=== PATIENT | female | born 1965 | race Two or more races ===

== ENCOUNTER 2024-12-24 17:11 | Emergency (ER) | payer SELFPAY ==
[~2024-12-24] VITALS: Ht 160 cm; Wt 86.3 kg
[2024-12-24 17:18] VITALS: BP 167/80; PULSE 80; RESP 18; O2SAT 99
--- NOTE | 2024-12-24 18:54 | DVH ---
INDICATION: injury COMPARISON: None TECHNIQUE: 2 views of the lumbar spine were obtained. FINDINGS: The lumbar vertebral alignment is normal. The intervertebral disc spaces are well-maintained. No significant facet arthropathy is noted. No acute fracture, vertebral compression deformity or aggressive osseous lesions. The paravertebral soft tissues are grossly unremarkable. IMPRESSION: No acute fracture.
--- NOTE | 2024-12-24 18:54 | DVH ---
INDICATION: injury COMPARISON: None TECHNIQUE: 3 views of the cervical spine were obtained. FINDINGS: The cervical vertebral alignment is normal. The predental space is normal. The intervertebral disc spaces are well-maintained. No significant facet arthropathy is noted. No acute fracture, vertebral compression deformity or aggressive osseous lesions. The imaged lung apices are unremarkable. IMPRESSION: No acute fracture.
--- NOTE | 2024-12-24 18:54 | DVH ---
INDICATION: injury COMPARISON: None TECHNIQUE:1 views of the thoracic spine were obtained. FINDINGS: The thoracic vertebral alignment is normal. The intervertebral disc spaces are well-maintained. No significant facet arthropathy is noted. No acute fracture, vertebral compression deformity or aggressive osseous lesions. The imaged thorax and abdomen are grossly unremarkable. IMPRESSION: No acute fracture.
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
[2024-12-24] MEDS ORDERED: IBU600T PO (19:36)
[2024-12-24] MEDS ORDERED: CYCL-839 PO (19:36)
[2024-12-25] MEDS: KETOROLAC TROMETH 30 MG/ML 1ML VIAL IM ONE (01:10)
== END 2024-12-25 01:09 | disposition home or self-care (01) ==
LOC: ER 17:11 → EDBD 17:11 → ER 12-25 01:09
DX: S39.012A Strain of muscle, fascia and tendon of lower back, initial encounter (principal); S16.1XXA Strain of muscle, fascia and tendon at neck level, initial encounter; Z88.0 Allergy status to penicillin; V89.2XXA Person injured in unspecified motor-vehicle accident, traffic, initial encounter; Y93.I9 Activity, other involving external motion; Y92.488 Other paved roadways as the place of occurrence of the external cause; Y99.8 Other external cause status
CPT/HCPCS: 72040; 72070; 72100